=== PATIENT | female | born 1985 | race Two or more races ===

== ENCOUNTER 2021-01-30 18:45 | Emergency (ER) | payer OTHER ==
[~2021-01-30] VITALS: Ht 154.9 cm; Wt 69.9 kg
== END 2021-01-31 01:15 | disposition home or self-care (01) ==
LOC: ER 18:45
DX: R10.2 Pelvic and perineal pain (principal); R10.32 Left lower quadrant pain

== ENCOUNTER 2021-02-18 09:14 | Outpatient (CLI) | payer OTHER | END 2021-02-18 09:34 | disposition home or self-care (01) | LOC: EKG 09:14 | PROVIDERS: ATTEND Internal Medicine | DX: Z01.810 Encounter for preprocedural cardiovascular examination (principal); D25.1 Intramural leiomyoma of uterus ==

== ENCOUNTER 2021-02-19 14:00 | Inpatient (IN) | payer OTHER ==
[~2021-02-19] VITALS: Ht 154.9 cm; Wt 63.5 kg
== END 2021-02-25 14:20 | disposition home or self-care (01) | DRG 743 ==
LOC: O/R 02-22 06:00 → SURH 02-22 06:00
PROVIDERS: ADMIT Specialist; ATTEND Specialist
PROC: 0UB50ZZ Excision of Right Fallopian Tube, Open Approach (ICD-10-PCS; 2021-02-22)
PROC: 0USG7ZZ Reposition Vagina, Via Natural or Artificial Opening (ICD-10-PCS; 2021-02-22)
PROC: 0US20ZZ Reposition Bilateral Ovaries, Open Approach (ICD-10-PCS; 2021-02-22)
PROC: 0UT90ZZ Resection of Uterus, Open Approach (ICD-10-PCS; principal; 2021-02-22 12:30)
DX: D25.2 Subserosal leiomyoma of uterus (principal); D50.0 Iron deficiency anemia secondary to blood loss (chronic); N72 Inflammatory disease of cervix uteri; D26.1 Other benign neoplasm of corpus uteri; D28.2 Benign neoplasm of uterine tubes and ligaments; N92.0 Excessive and frequent menstruation with regular cycle; N99.4 Postprocedural pelvic peritoneal adhesions; N73.6 Female pelvic peritoneal adhesions (postinfective); Z20.822 Contact with and (suspected) exposure to COVID-19

== ENCOUNTER 2024-07-09 08:15 | Inpatient (IN) | payer OTHER ==
[~2024-07-09] VITALS: Ht 33 cm; Wt 63.0 kg
[2024-07-09 09:00] VITALS: BP 109/74
[2024-07-09 09:09] LABS: HEMATOCRIT 36.4 % (36.0-45.00); HEMOGLOBIN 12.5 g/dL (12.0-15.00); MEAN CELL VOLUME 91.4 fL (80.00-100.00); MEAN CORPUSCULAR HEMOGLOBIN 31.4 pg (27.00-32.0); MEAN CORPUSCULAR HGB CONC 34.4 g/dl (32.0-36.0); PLATELET COUNT 270 K/uL (150-450); RED BLOOD COUNT 3.98 M/uL (4.00-6.00); RED CELL DISTRIBUTION WIDTH 13.5 % (11.5-14.5); URINE APPEARANCE Clear; URINE BILIRRUBIN Negative (NEGATIVE); URINE BLOOD Negative; URINE COLOR Yellow; URINE GLUCOSE Negative (NEGATIVE); URINE KETONE Negative (NEGATIVE); URINE LEUKOCYTE Negative; URINE NITRATE Negative; URINE PROTEIN Negative (NEGATIVE); URINE UROBILINOGEN 0.2 E.U./dl
[2024-07-09 09:10] LABS: URINE BACTERIA 280.9 uL (0.0-1933); URINE EPITHELIAL CELLS 23.1 uL (0.0-38.8); URINE RBC 4.4 uL (0.0-20.8)
[2024-07-09 09:16] LABS: INR 0.95; PROTHROMBIN TIME 10.4 SECONDS (9.0-11.5)
[2024-07-09 09:18] LABS: URINE WBC 0.9 uL (0.0-23.2)
[2024-07-09 09:38] LABS: ALBUMIN 3.7 gm/dL (3.4-5.0); BILIRUBIN TOTAL 0.34 mg/dL (0.3-1.2); CALCIUM 9.1 mg/dL (8.5-10.1); CREATININE SERUM 0.58 mg/dL (0.55-1.02); GFR 115.73; GLOBULINA 3.1 G/DL (2.4-3.5); POTASSIUM 4.03 mEq/L (3.5-5.1); TOTAL PROTEIN 6.8 gm/dL (6.4-8.2)
[2024-07-22] MEDS ORDERED: CEFOXITIN SODIUM 2,000 MG VIAL IV SCH (12:45)
[2024-07-22] MEDS ORDERED: MORPHINE SULFATE 4 MG/ML VIAL IV ONE ×2 (13:45→14:15)
[2024-07-22] MEDS ORDERED: MEPERIDINE HCL/PF 50 MG/ML VIAL IV SCH (16:00)
[2024-07-22] MEDS ORDERED: PROMETHAZINE HCL 25 MG/ML AMPUL IV SCH (16:00)
[2024-07-22 18:25] VITALS: BP 113/66
[2024-07-22 20:17] LABS: HEMATOCRIT 35.4 % (36.0-45.00); HEMOGLOBIN 12.1 g/dL (12.0-15.00); MEAN CELL VOLUME 92.5 fL (80.00-100.00); MEAN CORPUSCULAR HEMOGLOBIN 31.7 pg (27.00-32.0); MEAN CORPUSCULAR HGB CONC 34.3 g/dl (32.0-36.0); PLATELET COUNT 243 K/uL (150-450); RED BLOOD COUNT 3.83 M/uL (4.00-6.00); RED CELL DISTRIBUTION WIDTH 13.5 % (11.5-14.5)
[2024-07-23 00:32] VITALS: BP 100/60
[2024-07-23] MEDS ORDERED: IBUprofen 800 MG TABLET PO SCH (02:00)
[2024-07-23] MEDS ORDERED: SIMETHICONE 125 MG CAPSULE PO SCH (05:00)
[2024-07-23] MEDS ORDERED: POLYETHYLENE GLYCOL 3350 17 GM BLIST.PACK PO SCH (05:00)
[2024-07-23] MEDS ORDERED: GABAPENTIN 300 MG CAPSULE PO SCH (05:00)
[2024-07-23 07:45] VITALS: BP 95/60
[2024-07-23 15:29] VITALS: BP 97/69
[2024-07-23 20:56] VITALS: BP 112/75
[2024-07-24 00:42] VITALS: BP 95/56
[2024-07-24] MEDS ORDERED: POLY119PG PO (06:29)
[2024-07-24] MEDS ORDERED: IBUPROFEN800 MG PO (06:29)
[2024-07-24] MEDS ORDERED: SIMETHICONE125 M1 PO (06:29)
[2024-07-24] MEDS ORDERED: GABAPENTIN300 MG PO (06:29)
[2024-07-24 07:54] VITALS: BP 106/70
== END 2024-07-24 08:25 | disposition home or self-care (01) | DRG 743 ==
LOC: O/R 07-22 05:16 → OB/GYN 07-22 05:16
PROVIDERS: ADMIT Obstetrics & Gynecology; ATTEND Obstetrics & Gynecology
PROC: 0UT70ZZ Resection of Bilateral Fallopian Tubes, Open Approach (ICD-10-PCS; 2024-07-22)
PROC: 0UT20ZZ Resection of Bilateral Ovaries, Open Approach (ICD-10-PCS; 2024-07-22)
PROC: 0UN00ZZ Release Right Ovary, Open Approach (ICD-10-PCS; 2024-07-22)
PROC: 0DNW0ZZ Release Peritoneum, Open Approach (ICD-10-PCS; 2024-07-22)
PROC: 0DN80ZZ Release Small Intestine, Open Approach (ICD-10-PCS; 2024-07-22)
PROC: 0UT90ZZ Resection of Uterus, Open Approach (ICD-10-PCS; principal; 2024-07-22 11:00)
DX: N83.01 Follicular cyst of right ovary (principal); N83.02 Follicular cyst of left ovary; R19.00 Intra-abdominal and pelvic swelling, mass and lump, unspecified site; N83.202 Unspecified ovarian cyst, left side; R10.2 Pelvic and perineal pain; Z20.822 Contact with and (suspected) exposure to COVID-19; N73.6 Female pelvic peritoneal adhesions (postinfective)

== ENCOUNTER 2025-01-30 08:11 | Outpatient (CLI) | payer OTHER ==
[~2025-01-30 08:11] MED LIST: GABAPENTIN300 MG PO; IBUPROFEN800 MG PO; POLY119PG PO; SIMETHICONE125 M1 PO
== END 2025-01-30 08:13 | disposition home or self-care (01) ==
LOC: SONOGRAMA 08:11
PROVIDERS: ATTEND Internal Medicine
DX: R10.13 Epigastric pain (principal); R11.0 Nausea; R14.1 Gas pain